=== PATIENT | male | born 2000 | race Caucasian/White ===

== ENCOUNTER 2019-03-19 11:03 | Emergency (ER) | payer OTHER, SELFPAY ==
[2019-03-19 11:07] VITALS: BP 123/99; PULSE 95; RESP 18; TEMP 37; O2SAT 97
--- NOTE | 2019-03-19 11:18 | ED.GENADUL_ITS ---
Discharge Plan Disposition Patient Disposition: HOME Condition: Stable Discharge Details Chief Complaint: DrugWithdr Clinical Impression: Opiate withdrawal, Nausea and vomiting Primary Care Provider: Verenice,Local ED Provider: Michelle Allen Home Meds and New Rx's Prescriptions: Continued sertraline 100 mg Tablet 100 mg PO DAILY RF: 0 buspirone 10 mg Tablet 10 mg PO BID RF: 0 Discharge Instructions Instructions: Acute Nausea and Vomiting (ED), Opioid Withdrawal (ED) Additional Instructions: Take the Compazine as needed and directed for nausea and vomiting. Take the Suboxone sublingual dose tomorrow. Follow-up with your scheduled appointment with the [facility] on Wednesday. Return to the emergency department if you develop any worsening or new concerning symptoms. Discharge Data Discharge Date/Time-TO BE ENTERED AT DEPARTURE: 03/19/19 12:02 Discharge Physician: Michelle Allen Medical Decision Making 18-year-old male with history of opiate addiction last year being treated with Suboxone taper who is complaining of nausea vomiting and feelings of opiate withdrawal after his last dose of Suboxone 5 days ago. Patient states he has taken clonidine in the past and had adverse side effects which made his symptoms worse. His vitals are within normal limits. He appears nontoxic. No acute findings on exam. Abdomen soft and nontender. Discussed with Paresh from pharmacy and we can give patient 1 tab of 2 mg Suboxone today and one for tomorrow until he follows up with the [facility] program on Wednesday. We will also give 2 tabs of Compazine to take for nausea and vomiting. Patient feels that his symptoms are due to his opiate withdrawal and does not want any further work-up. He is advised to follow-up with his appointment at the [facility] on Wednesday and return here with any concerns. 1644 --after discharge, patient called the ED to state that he vomited directly after taking the Suboxone and Compazine here in the ED. He states he waited some time and then took his second dose of Compazine and Suboxone and states his symptoms improved somewhat but now he is complaining of nausea. He is only requesting additional doses of Compazine. Patient was given 3 additional doses of Compazine. Medical Records Medical records reviewed: Yes I reviewed the patient's medical records. HPI General Mode of arrival: ambulatory . Date/Time Provider Initiated Documentation: 03/19/19 11:10 . Limitations to Documentation: no limitations . Information obtained by: patient . HPI Narrative: Patient is a 18-year-old male with history of opiate addiction currently on Suboxone who presents for opiate withdrawal after his Suboxone ran out 5 days ago. Patient states he had used heroin intramuscularly last year and then he went into a rehab program and was started on Suboxone. He states he was on 8 mg sublingual Suboxone for 2 months, then taper down to 4 mg for 2 weeks, then 2 mg for 2 weeks. He states his last dose was 5 days ago. He states he was planning to stop his Suboxone completely, but was unaware that he would not have any withdrawal symptoms. He states for the past 5 days he has had intermittent nausea and vomiting and abdominal pain that comes and goes. He currently denies any abdominal pain. He states he has an appointment with the [facility] on Wednesday for intake and evaluation. He states he did attempt to reach his primary care doctor who prescribed Suboxone in [place] but states he was unavailable over the weekend. Patient states he would possibly like Suboxone to get him through until Wednesday. Related Data Home Medications Medication Instructions Recorded Confirmed buspirone 10 mg PO BID 03/19/19 03/19/19 sertraline 100 mg PO DAILY 03/19/19 03/19/19 Allergies Allergy/AdvReac Type Severity Reaction Status Date / Time No Known Allergies Allergy Unverified 03/19/19 11:15 General Stated Complaint: DrugWithdr MAURICE: 3 Review of Systems Review of Systems ROS Unobtainable: All systems reviewed & are unremarkable except as noted in HPI and below Constitutional Constitutional: Reports as per HPI, Denies chills and Denies fever(s) Eyes Eyes: Denies blurry vision ENT Ears, Nose, Mouth, and Throat: Denies dizziness, Denies sore throat and Denies throat swelling Cardiovascular Cardiovascular: Denies chest pain and Denies dyspnea Respiratory Respiratory: Denies cough and Denies dyspnea Gastrointestinal Gastrointestinal: Denies abdominal pain, Denies diarrhea and Reports vomiting Genitourinary Genitourinary: Denies hematuria and Denies dysuria Musculoskeletal Musculoskeletal: Denies back pain and Denies numbness Integumentary/Breasts Skin/Breast: Denies lesions and Denies rash Neurologic Neurologic: Denies dizziness, Denies focal weakness and Denies numbness Allergic/Immunologic Allergic/Immunologic: Denies throat swelling [facility] Medical History Anxiety (Chronic) Depression (Chronic) Surgical History No significant past surgical history (Acute) Social History Smoking/Tobacco Use Status: Current every day Tobacco Type: e-cigarettes Alcohol Intake: current Alcohol Intake frequency: a few times a month Drug use: Daily Substance use type: former substance user and marijuana Do you feel safe at home: Yes Exam Const General: cooperative, healthy appearing and no acute distress HENMT Head: normal to inspection Ears: hearing grossly normal bilaterally and TM's normal bilaterally General nose exam: external nose normal Face and sinus: normal facial exam Mouth: oral mucosae normal Throat: posterior oropharynx normal Eyes General: appearance normal, both eyes and all related structures Pupils: PERRL EOM: EOM intact bilaterally Neck Neck: normal visual inspection and No submandibular swelling Lymphatic: no lymphadenopathy noted Chest Chest: normal inspection of the chest and no tenderness Resp Effort & Inspection: normal respiratory effort and able to speak in complete sentences Auscultation: clear to auscultation bilaterally Cardio Rate: regular rate Rhythm: regular rhythm GI Inspection: normal to inspection Palpation: soft, not firm, not rigid and nontender Auscultation: normal bowel sounds Skin General skin exam: no rashes or lesions noted Neuro General: alert, awake and oriented x3 Cognition: normal cognition Speech: speech normal Motor: muscle tone normal throughout Sensory Exam: no sensory deficits noted Extrem General: normal to inspection, full ROM, normal capillary refill, no calf tenderness bilaterally and no edema Psych Appearance: grossly normal Mental Status: mental status grossly normal Speech and Movement: speech and movement normal Affect: normal affect Course Vital Signs Vital signs: Vital Signs Temperature 98.6 F 03/19/19 11:07 Pulse 95 H 03/19/19 11:07 Respiratory Rate 18 03/19/19 11:07 Blood Pressure 123/99 H 03/19/19 11:07 Pulse Oximetry 97 03/19/19 11:07 Temperature 98.6 F 03/19/19 11:07 Temperature Source Skin 03/19/19 11:07 Pulse 95 H 03/19/19 11:07 Respiratory Rate 18 03/19/19 11:07 Respiratory Effort Non-Labored 03/19/19 11:11 Respiratory Pattern Normal 03/19/19 11:11 Blood Pressure 123/99 H 03/19/19 11:07 Blood Pressure Position Sitting 03/19/19 11:07 Pulse Oximetry 97 03/19/19 11:07 Oxygen Delivery Method Room Air 03/19/19 11:07 Oxygen Flow Rate 0 03/19/19 11:07 Pain Level 5 03/19/19 11:07
[2019-03-19] MEDS: Prochlorperazine 10 MG TAB 20 MG PO (11:54)
[2019-03-19 11:58] VITALS: BP 123/99; PULSE 95; RESP 18; TEMP 37; O2SAT 97
[2019-03-19] MEDS: Prochlorperazine 10 MG TAB 30 MG PO (17:12)
== END 2019-03-19 12:02 | disposition home or self-care (01) ==
LOC: ER 12:01
PROVIDERS: Emergency Provider Physician Assistant
DX: R11.2 Nausea with vomiting, unspecified (principal); F11.23 Opioid dependence with withdrawal; Z91.14 Patient's other noncompliance with medication regimen
CPT/HCPCS: 99283

== ENCOUNTER 2019-03-23 16:34 | Emergency (ER) | payer OTHER, SELFPAY ==
[2019-03-23] VITALS (8 sets, daily range): BP systolic 123–157; BP diastolic 67–95; PULSE 58–93; RESP 14–18; TEMP 36.4–38.4; O2SAT 95–100
[2019-03-23] MEDS: Normal Saline 1,000 ML 1000 ML IV ×2 (16:45→21:16)
[2019-03-23] MEDS: Ondansetron 4 MG/2 ML VIAL (16:57)
--- NOTE | 2019-03-23 17:05 | W.ED.GENAD ---
Discharge Plan Disposition Patient Disposition: HOME Condition: Improving Discharge Details Chief Complaint: Nausea/Vomit/Diar Clinical Impression: Abdominal pain with vomiting Primary Care Provider: Verenice,Local ED Provider: Mey Victoria Home Meds and New Rx's Prescriptions: No Action sertraline 100 mg Tablet 100 mg PO DAILY RF: 0 buspirone 10 mg Tablet 10 mg PO BID RF: 0 Discharge Instructions Instructions: Abdominal Pain (ED) Additional Instructions: Drink plenty of fluids. Use medications as prescribed if needed. Tylenol every 6-8 hours if needed for pain, Compazine 3 to 4 times daily if needed activities as tolerated. [place] diet advance as tolerated as discussed Follow-up with [facility] as intended. For alarming symptoms, increase in abdominal pain, fever, worsening symptoms or concerns of immediate reevaluation in the emergency room as discussed Discharge Data Discharge Date/Time-TO BE ENTERED AT DEPARTURE: 03/23/19 23:35 Medical Decision Making <LEELEE Cabrera - Last Filed: 03/25/19 20:15> 18-year-old man presents to the emergency room for complaints of abdominal pain for the last 3 hours associated with several episodes of vomiting and dry heaving. Patient was seen in the emergency room 4 days ago for concern of opiate withdrawal as he ran out of his Suboxone. Patient missed his subsequent recovery appointment therefore has continued to be out of his Suboxone. Patient has been using Compazine with relief of nausea and has been feeling well for the last 3 days. Today it a cheeseburger at [facility] after which he began with severe upper right-sided abdominal pain which has persisted since. Patient reports somewhat episodic pain in his abdomen without radiation. Ultrasound of the right upper quadrant obtained to rule out gallbladder disease as well as labs ordered. Zofran provided for nausea. Patient an ultrasound and unable to tolerate the exam. They were able to identify the gallbladder wall but unable to identify the common bile duct before patient refused the remainder of his exam. Patient returned back to the emergency room. Phenergan was provided for persistent nausea. Toradol and Tylenol ordered for comfort. Patient ultimately had CT evaluation of his abdomen mild wall thickening diffusely of the colon as well as mild circumferential bladder wall thickening. Patient has unremarkable urinalysis. Gallbladder had no obvious enlargement or gallbladder wall thickening. No obvious gallstones identified on CAT scan. No ductal dilation of the common bile duct noted on CAT scan. Ultrasound although mildly limited as they were unable to identify the common bile duct given patient's reported pain was also unremarkable for obvious acute findings. Patient continued to be persistently uncomfortable despite 2 doses of morphine in addition to Toradol and IV Tylenol. Patient noted to have leukocytosis as well as mild developing fever and elevated bilirubin. At this point I asked my attending to reevaluate the patient for second opinion given lack of obvious explanatory CT findings in conjunction with fever and lab findings. After my attending ordered additional medications patient seems significantly improved. Reevaluation of the patient he reports 2 out of 10 pain with no persistent nausea is requesting discharge home at this time. Discussed possible inpatient treatment versus discharge home. Patient would strongly prefer discharge home at this time with prescriptions for Tylenol and Compazine. Prior to discharge, my usual and customary return precautions were reviewed with the patient - this included follow-up instructions and reasons to return to the Emergency Department if conditions worsens, does not improve as expected, or other new concerns arise. <Christopher Shaw MD - Last Filed: 03/24/19 00:13> Patient seen and discussed with LEELEE Victoria. Had been seen here over the weekend with nausea, vomiting and some abdominal pain. Subsequently went home and did reasonably well on a bland diet. He has been tapered off Suboxone and there was some question of possible withdrawal over the weekend. He went to [facility] this afternoon and shortly after eating the food there became acutely ill with nausea, vomiting and abdominal pain again. He has been already treated with fluids, Zofran, Phenergan, IV Tylenol, Toradol, couple of doses of morphine. Patient has a low-grade fever. Continues to have nausea, vomiting and abdominal pain that he describes as generalized cramping. On my exam with distraction his abdomen is completely benign. His work-up included laboratory studies which for the most part unremarkable other than elevated white count. Partial right upper quadrant ultrasound revealed gallbladder to look okay, common bile duct not visualized. CT scan essentially unremarkable other than possibly some wall thickening of the colon and bladder. Patient is not having any diarrhea. Patient given IV Ativan and p.o. Levsin after my evaluation. Subsequently felt much better. No further pain or nausea. Tolerated fluids. Vital signs normalized. He was discharged home. Lab Data Lab results reviewed: Yes I reviewed the patient's lab results. HPI <Mey A Victoria, PA - Last Filed: 03/25/19 20:15> General Date/Time Provider Initiated Documentation: 03/23/19 16:42. HPI Narrative: 18-year-old patient presents to the ER for nausea vomiting and abdominal pain. Patient reports upper abdominal pain for the last 3 hours after eating a cheeseburger. Patient reports he was seen here on the for concern of opiate withdrawal as he ran out of his Suboxone and had been recently tapering. Patient received 2 doses of his Suboxone and Compazine pending his follow-up appointment on Wednesday at [facility]. Patient ultimately missed his follow-up appointment on Wednesday as he was not feeling well. Patient reports at this time significantly worse upper abdominal pain without radiation to his back. Patient reports several episodes of vomiting and nausea which he cannot quantify as he reports there is too many episodes to count. Patient denies any associated diarrhea change in bowel movements. No urinary urgency, frequency or dysuria. Denies obvious fevers. Chills present. No significant headache or dizziness. No other concerns or complaints at this time. Pain is reportedly cramping with long-lasting episodes of very brief moments of improvement. Related Data Home Medications Medication Instructions Recorded Confirmed buspirone 10 mg PO BID 03/19/19 03/23/19 sertraline 100 mg PO DAILY 03/19/19 03/23/19 Allergies Allergy/AdvReac Type Severity Reaction Status Date / Time No Known Allergies Allergy Unverified 03/23/19 16:41 General Stated Complaint: Nausea/Vomit/Diar MAURICE: 3 Review of Systems <LEELEE Cabrera - Last Filed: 03/25/19 20:15> Review of Systems ROS Unobtainable: All systems reviewed & are unremarkable except as noted in HPI and below Constitutional Constitutional: Reports chills and Denies fever(s) Gastrointestinal Gastrointestinal: Reports abdominal pain, Denies diarrhea, Reports nausea and Reports vomiting Genitourinary Genitourinary: Reports hematuria, Reports urinary frequency and Reports urinary urgency PFS <LEELEE Cabrera - Last Filed: 03/25/19 20:15> Medical History Anxiety (Chronic) Depression (Chronic) Social History Smoking/Tobacco Use Status: Current every day Tobacco Type: e-cigarettes Alcohol Intake: current Alcohol Intake frequency: a few times a month Drug use: Daily Substance use type: former substance user and marijuana Do you feel safe at home: Yes Exam <LEELEE Cabrera - Last Filed: 03/25/19 20:15> Narrative Exam Narrative: CONST: Healthy appearing patient, in no acute distress. Well hydrated. Alert and alert. CHEST: Normal insepection of the chest. RESP: Normal respiratory effort. Speaking full sentences. No cough. No audible wheezing. No retractions. Breath sounds equal bilaterally, no wheezing, rhonchi or rales. CARDIO: No JVD. No murmurs or rubs MUSCULOSKELETAL: Normal Gait. FROM of all extremities. Abdomen; abdomen is soft, bowel sounds present in all 4 quadrants. Patient with moderate tenderness in the right upper quadrant. Mild epigastric tenderness. No significant lower abdominal pain with palpation. No rebound or guarding. SKIN: Normal. Dry. No rashes. NEURO: Alert and awake. Speech clear. PSYCH: Normal affect. Cooperative. Course <LEELEE Cabrera - Last Filed: 03/25/19 20:15> Vital Signs Vital signs: Vital Signs Temperature 36.8 C 03/23/19 16:37 Pulse 93 H 03/23/19 16:37 Respiratory Rate 16 03/23/19 16:37 Blood Pressure 157/95 H 03/23/19 16:37 Pulse Oximetry 95 03/23/19 16:37 Temperature 36.8 C 03/23/19 16:37 Temperature Source Skin 03/23/19 16:37 Pulse 93 H 03/23/19 16:37 Respiratory Rate 16 03/23/19 16:37 Respiratory Effort Non-Labored 03/23/19 16:37 Blood Pressure 157/95 H 03/23/19 16:37 Blood Pressure Position Sitting 03/23/19 16:37 Pulse Oximetry 95 03/23/19 16:37 Oxygen Delivery Method Room Air 03/23/19 16:37 Oxygen Flow Rate 0 03/23/19 16:37 Pain Level 8 03/23/19 16:57
[2019-03-23 17:18] LABS: Abs Immature Grans 0.02 k/cumm (0.0-0.09); Absolute Basophil Count 0.03 k/cumm (0.0-0.2); Absolute Lymphocyte Count 1.23 k/cumm (1.2-3.4); Basophils % 0.2; HGB 14.6 g/dL (13.5-17.5); Immature Grans % 0.1; Lymphocytes % 8.9; Mean Corp. HGB Concentration 35.6 g/dL (32.0-36.0); Mean Corpuscular Hemoglobin 29.5 pg (27.0-33.0); Mean Corpuscular Volume 82.8 fL (80-95); Mean Platelet Volume 10.9 fL (8.0-11.0); Monocytes % 1.4; Neutrophils % 89.4; Platelet Count 286 x1000/uL (130-400); RBC 4.95 m/cumm (4.50-6.00); RBC Distribution Width 12.3 % (11.8-14.1); White Blood Cell Count 13.84 k/cumm (4.4-10.8)
[2019-03-23 17:19] LABS: Absolute Monocyte Count 0.19 k/cumm (0.11-0.7); Absolute Neutrophil Count 12.37 k/cumm (1.2-6.7)
--- NOTE | 2019-03-23 17:28 | NUR.NOTE ---
Nursing Note: u/s tech reports that pt is vomiting in u/s , md updated and new orders noted, primary rn updated.
[2019-03-23 17:31] LABS: ALT 13 U/L (16-63); AST 9 U/L (15-37); Albumin 4.7 g/dL (3.4-5.0); Alkaline Phosphatase 68 U/L (46-116); BUN 11 mg/dL (7-18); Bilirubin, Total 2.4 mg/dL (0.2-1.0); CREATININE 1.07 mg/dL (0.70-1.30); Calcium 8.8 mg/dL (8.5-10.1); Chloride 105 mmol/L (98-107); Glucose 138 mg/dL (70-100); Lipase 68 U/L (73-393); Potassium 3.3 mmol/L (3.5-5.1); Sodium 144 mmol/L (136-145); Total Protein 7.6 g/dL (6.4-8.2)
--- NOTE | 2019-03-23 17:35 | DI.US_ITS ---
EXAM: US ABDOMEN LIMITED CLINICAL HISTORY: RUQ abd pain, r/o cholecystitis TECHNIQUE: Ultrasound performed using standard protocol. COMPARISON: CT ABDOMEN PELVIS W from 03/23/2019 FINDINGS: The gallbladder has a normal appearance. There is no abnormal gallbladder distention, wall thickeni ng or evidence of stones. The visualized portions of liver shows normal echogenicity. None the eli ent did did are refused completion of the exam in the common duct was not visible. It is not enlarge d on the CT performed earlier the same day. IMPRESSION: Normal gallbladder.
--- NOTE | 2019-03-23 18:08 | DI.VRAD_ITS ---
PROCEDURE INFORMATION: Exam: US Abdomen Limited, Right Upper Quadrant Exam date and time: 03/23/2019 5:37 PM Clinical history: 18 years old, male; Abdominal pain; Localized; Right upper quadrant (ruq) TECHNIQUE: Imaging protocol: Real-time ultrasound of the abdomen with image documentation. Examination was focused on the right upper quadrant. COMPARISON: No relevant prior studies available. FINDINGS: Liver: No masses in the visualized portion. Gallbladder: No gallstones. There is no gallbladder wall thickening. Common bile duct: Unable to evaluate because patient declined further evaluation. Pancreas: Not evaluated. See above. Right kidney: Visualized portion appears unremarkable. IMPRESSION: No gallstone. No gallbladder wall thickening. Suboptimal study because patient declined further evaluation. Dictated and Authenticated by: Fabrizio Foy MD. Ordering:MORENO Mathias MD
[2019-03-23] MEDS: Ketorolac 15 MG/ML VIAL IVP (18:10)
[2019-03-23] MEDS: ACETAMINOPHEN 1,000 MG/100 ML BTL 400 MG IVPB (18:10)
[2019-03-23] MEDS: Omnipaque 350 MG/ML 100 ML BTL IJ (19:36)
--- NOTE | 2019-03-23 19:38 | DI.CT_ITS ---
EXAM: CT ABDOMEN PELVIS W CLINICAL HISTORY: RUQ AND GERNALIZED ABD PAIN TECHNIQUE: Post IV contrast. No oral contrast. COMPARISON: No exams were available for comparison FINDINGS: The lung bases are clear. The liver, spleen, pancreas, kidneys and adrenals are unremarkable. There is no significant stool within the colon which is nondistended. There is a question of mild urinary bladder wall thickening. No adenopathy is seen. There is no evidence of appendicitis. IMPRESSION: No acute abnormality. Question of mild urinary bladder wall thickening.
--- NOTE | 2019-03-23 19:51 | DI.VRAD_ITS ---
PROCEDURE INFORMATION: Exam: CT Abdomen And Pelvis With Contrast Exam date and time: 03/23/2019 7:34 PM Clinical history: 18 years old, male; Abdominal pain; Generalized TECHNIQUE: Imaging protocol: Computed tomography of the abdomen and pelvis with intravenous contrast. Radiation optimization: All CT scans at this facility use at least one of these dose optimization techniques: automated exposure control; mA and/or kV adjustment per patient size (includes targeted exams where dose is matched to clinical indication); or iterative reconstruction. Contrast material: [id number]; Contrast volume: 90 ml; Contrast route: IV 20G LAC; COMPARISON: US ABDOMEN LIMITED 03/23/2019 5:21 PM FINDINGS: Liver: No mass. Gallbladder and bile ducts: No calcified stones. No ductal dilation. Pancreas: No ductal dilation. Spleen: No splenomegaly. Adrenals: No mass. Kidneys and ureters: No hydronephrosis. Stomach and bowel: Apparent mild wall thickening diffusely in the colon. Appendix: No evidence of appendicitis. Intraperitoneal space: No free air. No significant fluid collection. Vasculature: No acute finding. Lymph nodes: No enlarged lymph nodes. Bladder: Apparent mild circumferential bladder wall thickening, may be exaggerated by non-maximal distention. Reproductive: Unremarkable as visualized. Bones/joints: Unremarkable. No acute fracture. Soft tissues: Unremarkable. IMPRESSION: 1. Apparent mild wall thickening diffusely in the colon. This can be exaggerated by nondistention. However, correlate for mild inflammation. 2. Apparent mild circumferential bladder wall thickening, may be exaggerated by non-maximal distention. Correlate to rule out cystitis. Dictated and Authenticated by: Fabrizio Foy MD. Ordering:MORENO Mathias MD
[2019-03-23 19:57] LABS: *AMPHETAMINES SCREEN URINE Negative (Negative); *BARBITURATES SCREEN URINE Negative (Negative); *BENZODIAZEPINES SCREEN URINE Negative (Negative); Cannabinoids THC POSITIVE (Negative); Cocaine Screen,Urine Negative (Negative); METHADONE URINE SCREEN Negative (Negative); OPIATES URINE SCREEN Negative (Negative)
[2019-03-23 20:01] LABS: Tricyclic Antidepressants Negative (Negative)
[2019-03-23 20:23] LABS: Bilirubin Negative (Negative); Blood Negative (Negative); Clarity Clear (Clear); Glucose Negative (Negative); Ketones 80 mg/dL (Negative); Leukocyte Esterase Negative (Negative); Nitrite Negative (Negative); pH 7.5 (5-8)
[2019-03-23 20:39] LABS: Bacteria Negative HPF (Negative); C & S Indicated? No; Casts Negative LPF (Negative); Crystals Many Amorphous HPF (Negative); Epithelial Cells Negative HPF (Negative); Mucus Moderate (Negative); Other Cells Negative (Negative); RBC Negative (0-2); WBC 0-2 HPF (0-5)
[2019-03-23] MEDS: Ondansetron 4 MG/2 ML VIAL IVP (21:14)
[2019-03-23] MEDS: Hyoscyamine 0.125 MG SL/ORAL/CHEW SL (21:45)
[2019-03-23] MEDS: LORazepam 2 MG/ML VIAL 1 MG IVP (21:45)
[2019-03-23] MEDS: Acetaminophen 500 MG TAB 4000 MG PO (23:32)
[2019-03-23] MEDS: Prochlorperazine 10 MG TAB 40 MG PO (23:32)
== END 2019-03-23 23:35 | disposition home or self-care (01) ==
PROVIDERS: Emergency Provider Physician Assistant
DX: R11.2 Nausea with vomiting, unspecified (principal); R10.11 Right upper quadrant pain; F11.23 Opioid dependence with withdrawal; Z91.14 Patient's other noncompliance with medication regimen
CPT/HCPCS: 80053; 80307; 83690; 96361; 96365; 96367; 96375; 96376; 99285; 74177; 76705; 81003; 81015; 85025; 99284; J0131; J1885; J2060; J2405; J3490

== ENCOUNTER 2019-03-28 19:55 | Emergency (ER) | payer OTHER, SELFPAY ==
[2019-03-28 20:00] VITALS: BP 134/100; PULSE 100; RESP 18; TEMP 36.4; O2SAT 98
--- NOTE | 2019-03-28 20:03 | ED.GENADUL_ITS ---
Discharge Plan Disposition Patient Disposition: HOME Condition: Improving Discharge Details Chief Complaint: Nausea/Vomit/Diar Clinical Impression: Nausea and vomiting, Abdominal cramping Primary Care Provider: Verenice,Local ED Provider: Christopher Shaw Meds and New Rx's Prescriptions: New ondansetron 4 mg tablet,disintegrating 4 mg PO Q6H PRN (Reason: nausea and vomiting) Qty: 10 RF: 0 hyoscyamine sulfate 0.125 mg tablet,disintegrating 0.125 mg PO BID-QID PRN (Reason: abdominal cramping) Qty: 10 RF: 0 Continued sertraline 100 mg Tablet 100 mg PO DAILY RF: 0 buspirone 10 mg Tablet 10 mg PO BID RF: 0 Discharge Instructions Additional Instructions: [place] diet for the next 24 hours. Stay hydrated. Medications for nausea/vomiting and abdominal cramping as needed. You need to establish primary care in the area for follow-up. Will have case management reach out to try to facilitate this. Return to ED for fever, increasing pain, persistent vomiting, other problems. Consider taking a 2-week break from marijuana to see if this improves symptoms. Referrals: Care Management [Provider Group] Medical Decision Making <Christopher Shaw MD - Last Filed: 03/28/19 23:22> Patient presenting with recurrent nausea, vomiting and abdominal pain. Last visit did not respond to typical treatment. Eventually responded to 1 dose of Ativan and a dose of sublingual Levsin. Starting to suspect cannabis hyperemesis syndrome. We will give a liter of fluid. Will treat with Zofran, Ativan, Levsin. Will check laboratory studies. Previous ultrasound, CAT scan, laboratory studies are unremarkable other than slightly elevated white count. Will reevaluate. Patient laboratory studies show no significant change from previous. White count still little elevated. Potassium just a little low. Liver function and lipase normal. He has had no further nausea or vomiting here. His abdominal exam is benign. He has tolerated ice chips and azeem kavitha. Patient will be discharged home with prescriptions for Zofran and Levsin. [place] diet for the next 24 hours. Referral to care management to obtain primary care here in the area. Return to ED if recurrent symptoms, fever, other problems. Lab Data Lab results reviewed: Yes I reviewed the patient's lab results. <LEELEE Schumacher - Last Filed: 03/28/19 23:37> My name was added to this chart in error. HPI <Christopher Shaw MD - Last Filed: 03/28/19 23:22> General Mode of arrival: ambulatory . Date/Time Provider Initiated Documentation: 03/28/19 20:03 . Limitations to Documentation: no limitations . Information obtained by: patient, RN notes reviewed and old records reviewed . HPI Narrative: Patient presents to ED with recurrent nausea, vomiting and abdominal pain. Patient has been seen here twice recently for same. I was involved in his care with his last visit. Subsequently after leaving the ED he reports being fine and eating and drinking normally. Woke up this morning feeling fine but since this afternoon has been unable to keep anything down and is unable to stop retching. There is nothing different about this episode than previous episodes. He has not had problems like this in the past. He does continue to smoke marijuana on a daily basis. He denies hematemesis or coffee-ground emesis. He denies diarrhea. Related Data Home Medications Medication Instructions Recorded Confirmed buspirone 10 mg PO BID 03/19/19 03/28/19 sertraline 100 mg PO DAILY 03/19/19 03/28/19 hyoscyamine sulfate 0.125 mg PO BID-QID PRN #10 tab 03/28/19 ondansetron 4 mg PO Q6H PRN #10 tab 03/28/19 Previous Rx's Medication Instructions Recorded hyoscyamine sulfate 0.125 mg PO BID-QID PRN #10 tab 03/28/19 ondansetron 4 mg PO Q6H PRN #10 tab 03/28/19 Allergies Allergy/AdvReac Type Severity Reaction Status Date / Time No Known Allergies Allergy Unverified 03/28/19 20:05 General MAURICE: 3 Review of Systems <Christopher Shaw MD - Last Filed: 03/28/19 23:22> Review of Systems Narrative: As documented in HPI otherwise negative as below. Const: no fever, chills, weakness Resp: no cough, SOB, pleuritic pain CV: no CP, diaphoresis, edema, syncope GI: abdominal pain, nausea, vomiting; no diarrhea Neuro: no headache, numbness, focal weakness, confusion PFSH <Christopher Shaw MD - Last Filed: 03/28/19 23:22> Medical History Anxiety (Chronic) Depression (Chronic) Surgical History No significant past surgical history (Acute) Social History Smoking/Tobacco Use Status: Current every day Tobacco Type: e-cigarettes Alcohol Intake: current Alcohol Intake frequency: a few times a month Drug use: Daily Substance use type: former substance user and marijuana Do you feel safe at home: Yes Do you feel safe in your relationship?: Yes Exam <Christopher Shaw MD - Last Filed: 03/28/19 23:22> Narrative Exam Narrative: Vitals: Afebrile. Mild tachycardia and elevated blood pressure. Normal O2 saturation. Const: WDWN male in NAD holding bucket. HEENT: NC/AT. Normal facial exam. Eyes: Normal conjunctiva and sclera. Neck: Supple. Trachea midline. Lungs: Normal respiratory effort. Lungs are clear. Cor: RRR without murmur/gallop. Good radial pulses. GI: Soft. NT/ND. No guarding or rebound. Neuro: A+O x 3. CN grossly in tact. Good strength and no focal deficit. Ext: No C/C/E. No deformity or tenderness. Skin: Warm and dry without rash.
[2019-03-28] MEDS: Lactated Ringers 1,000 ML 1000 ML IV (20:17)
[2019-03-28] MEDS: Ondansetron 4 MG/2 ML VIAL IVP (20:17)
[2019-03-28] MEDS: LORazepam 2 MG/ML VIAL 1 MG IVP (20:17)
[2019-03-28 20:22] LABS: Abs Immature Grans 0.03 k/cumm (0.0-0.09); Absolute Basophil Count 0.04 k/cumm (0.0-0.2); Absolute Eosinophil Count 0.03 k/cumm (0.0-0.7); Absolute Monocyte Count 0.46 k/cumm (0.11-0.7); Basophils % 0.3; Eosinophils % 0.2; HGB 15.6 g/dL (13.5-17.5); Immature Grans % 0.2; Lymphocytes % 13.8; Mean Corp. HGB Concentration 35.5 g/dL (32.0-36.0); Mean Corpuscular Hemoglobin 29.5 pg (27.0-33.0); Mean Corpuscular Volume 83.2 fL (80-95); Mean Platelet Volume 10.7 fL (8.0-11.0); Monocytes % 3.2; Neutrophils % 82.3; Platelet Count 284 x1000/uL (130-400); RBC 5.29 m/cumm (4.50-6.00); RBC Distribution Width 12.6 % (11.8-14.1); White Blood Cell Count 14.53 k/cumm (4.4-10.8)
[2019-03-28 20:28] LABS: Absolute Lymphocyte Count 2.01 k/cumm (1.2-3.4); Absolute Neutrophil Count 11.96 k/cumm (1.2-6.7)
[2019-03-28 20:31] LABS: ALT 10 U/L (16-63); AST 8 U/L (15-37); Albumin 4.7 g/dL (3.4-5.0); Alkaline Phosphatase 71 U/L (46-116); Anion Gap 16.3 mmol/L (3-11); BUN 8 mg/dL (7-18); Bilirubin, Total 1.2 mg/dL (0.2-1.0); CO2 23.7 mmol/L (21.0-32.0); CREATININE 0.82 mg/dL (0.70-1.30); Calcium 8.8 mg/dL (8.5-10.1); Chloride 105 mmol/L (98-107); Glucose 149 mg/dL (70-100); Lipase 73 U/L (73-393); Potassium 3.4 mmol/L (3.5-5.1); Sodium 145 mmol/L (136-145); Total Protein 7.6 g/dL (6.4-8.2)
[2019-03-28] MEDS: Hyoscyamine 0.125 MG SL/ORAL/CHEW SL (21:07)
--- NOTE | 2019-03-28 21:08 | NUR.NOTE ---
Nursing Note: pt appears to be sleeping on his left side. when awoke pt he reports that he isn't feeling any better. ctm
[2019-03-28 21:36] VITALS: BP 160/87; PULSE 67; RESP 16; O2SAT 100
[2019-03-28 23:20] VITALS: BP 136/88; PULSE 86; RESP 17; TEMP 37.2; O2SAT 98
[2019-03-28] MEDS: Ondansetron O.D.T. 4 MG TABEF, 3 TABS/BTL PO (23:27)
== END 2019-03-28 23:30 | disposition home or self-care (01) ==
PROVIDERS: Emergency Provider Emergency Medicine
DX: R11.2 Nausea with vomiting, unspecified (principal); R10.9 Unspecified abdominal pain
CPT/HCPCS: 36415; 80053; 83690; 96361; 96374; 99284; 85025; J2060; J2405; J3490

== ENCOUNTER 2019-07-17 22:07 | Emergency (ER) | payer SELFPAY ==
[2019-07-17 22:13] VITALS: BP 122/77; PULSE 84; RESP 16; TEMP 36.6; O2SAT 97
--- NOTE | 2019-07-18 02:21 | NUR.NOTE ---
Nursing Note: LATE ENTRY FOR 230 on 07/17/19: Provider made aware pt wanted to leave AMA. I feel better and want to go. Provider aware, has established capacity and pt signs paperwork and leaves ED, walking.
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
== END 2019-07-17 23:02 ==
PROVIDERS: Emergency Provider Physician Assistant
DX: Z53.21 Procedure and treatment not carried out due to patient leaving prior to being seen by health care provider (principal)

== ENCOUNTER 2019-07-19 15:15 | Emergency (ER) | payer OTHER, SELFPAY ==
[2019-07-19 15:18] VITALS: BP 133/73; PULSE 106; RESP 16; TEMP 37.2; O2SAT 98
--- NOTE | 2019-07-19 15:30 | DI.RAD_ITS ---
EXAM: XR ANKLE RT COMPLETE INDICATION: Swelling, contusion. COMPARISON: No exams were available for comparison TECHNIQUE: 2D digital imaging was performed. FINDINGS: There is a bony density seen best on the lateral view at the posterior aspect of the talus. It is loc ated medial to the talus on the AP view. There is a defect in the medial aspect of the talus. This may represent a large avulsed fragment. Findings are of indeterminate age. The ankle mortise is not widened. No additional fractures are seen. IMPRESSION: Question of an avulsion fracture from the medial aspect of the talus.
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
--- NOTE | 2019-07-19 16:45 | DI.CT_ITS ---
EXAM: CT LOWER EXTREMITY RT WO CLINICAL HISTORY: ankle and hindfoot, pain, ID for fracture. TECHNIQUE: The exam was performed without contrast. COMPARISON: XR ANKLE RT COMPLETE from 07/19/2019 FINDINGS: There is a comminuted fracture involving the posterior medial aspect of the talus. Up to 1 centimete r of displacement of the fracture fragments is noted. There is some impaction of the fracture noted. There is a nondisplaced fracture involving the proximal and superior navicular. It involves the kavitha avicular joint. There is an osseous fragment posterior to the lateral malleolus suspicious for a small avulsion fract ure. There is soft tissue swelling of the ankle. There is an ankle joint effusion. IMPRESSION: 1. Comminuted displaced fracture involving the posterior medial talus. 2. Nondisplaced intra-articular fracture of the proximal navicular. 3. Osseous fragment posterior to the lateral malleolus suspicious for a small avulsion fracture.
--- NOTE | 2019-07-19 17:24 | DI.VRAD_ITS ---
PROCEDURE INFORMATION: Exam: CT Right Lower Extremity Without Contrast, Ankle Exam date and time: 07/19/2019 5:00 PM Age: 19 years old Clinical indication: Pain; Ankle; Right TECHNIQUE: Imaging protocol: CT of the Right lower extremity without contrast was performed. Exam focused on the ankle. COMPARISON: CR XR ANKLE RT COMPLETE 07/19/2019 3:52 PM FINDINGS: Bones/joints: Acute comminuted fracture of the posteromedial aspect of the talus. Up to 11 mm of displacement. Up to 6 mm of impaction. Fracture extends into the posterior subtalar joint. 2 mm x 5 mm x 1 mm ossification along the posterior aspect of the lateral malleolus, favored to represent a small avulsed fracture fragment, with 9 mm of posterior displacement. Acute nondisplaced fracture of the navicular, extending into the talonavicular joint. Moderate ankle joint hemarthrosis. No dislocation. Soft tissues: Diffuse soft tissue swelling surrounding the ankle and at the dorsal aspect of the foot. IMPRESSION: 1. Acute comminuted, displaced, and impacted intra-articular fracture of the posteromedial aspect of the talus. 2. Acute nondisplaced fracture of the navicular. 3. Apparent tiny avulsion fracture of the lateral malleolus. Please note that this is a preliminary report. The separate, final report is to follow. Dictated and Authenticated by: Sabrina Ocampo MD. Ordering:MORENO Mathias MD
== END 2019-07-19 18:55 | disposition home or self-care (01) ==
PROVIDERS: Emergency Provider Physician Assistant
DX: S92.131A Displaced fracture of posterior process of right talus, initial encounter for closed fracture (principal); S92.254A Nondisplaced fracture of navicular [scaphoid] of right foot, initial encounter for closed fracture; S82.61XA Displaced fracture of lateral malleolus of right fibula, initial encounter for closed fracture; V43.52XA Car driver injured in collision with other type car in traffic accident, initial encounter
CPT/HCPCS: 28450; 73610; 73700; E0114; L4361

== ENCOUNTER 2019-12-22 02:41 | Emergency (ER) | payer OTHER, SELFPAY ==
[2019-12-22 02:46] VITALS: BP 144/80; PULSE 86; RESP 16; TEMP 36.5; O2SAT 100
--- NOTE | 2019-12-22 02:46 | ED.GENADUL_ITS ---
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 Establish primary care here, will have care management help you with this. Consider contacting [facility] for counseling. Return to ED if problems. Referrals: Care Management [Provider Group] [facility] [Provider Group] Medical Decision Making Patient with history of anxiety who is missed a few days of his BuSpar. Likely contributed to panic attack tonight. Is better but still quite anxious and quite scared. Will give dose of p.o. Ativan here as his girlfriend drove. He will be sure to fill his prescription for his BuSpar today and begin retaking it. He does not have primary care in the area so will refer to care management to help establish same. Should consider following up with a counselor or reaching out to [facility] for same. HPI General Mode of arrival: ambulatory . Date/Time Provider Initiated Documentation: 12/22/19 02:45 . Limitations to Documentation: no limitations . Information obtained by: patient and RN notes reviewed . HPI Narrative: Patient presents to ED with panic attack. Patient has history of anxiety disorder and has had panic attacks in the past. He ran out of his buspirone few days ago. He is not had time to refill it. Tonight he developed panic attack with associated shortness of breath, palpitations, diaphoresis, hyperventilation leading to near syncope. He was unable to calm himself down. Yet his girlfriend bring him here. He is managed to calm down a little bit at this point and feels better, but still is very anxious and scared. Related Data Home Medications Medication Instructions Recorded Confirmed buspirone 20 mg PO DAILY 03/19/19 12/22/19 sertraline 100 mg PO DAILY 03/19/19 12/22/19 Allergies Allergy/AdvReac Type Severity Reaction Status Date / Time No Known Allergies Allergy Unverified 07/19/19 15:21 General MAURICE: 4 Review of Systems Constitutional Constitutional: Denies fever(s) Cardiovascular Cardiovascular: Denies chest pain, Reports rapid heart rate, Reports lightheadedness and Reports dyspnea Respiratory Respiratory: Denies cough and Reports dyspnea Gastrointestinal Gastrointestinal: Denies diarrhea, Reports nausea and Denies vomiting Psychiatric Psychiatric: Reports anxiety and Reports panic attacks [facility] Medical History Anxiety (Chronic) Depression (Chronic) Surgical History No significant past surgical history (Acute) Social History Smoking/Tobacco Use Status: Current every day Tobacco Type: e-cigarettes Alcohol Intake: current Alcohol Intake frequency: a few times a month Drug use: Daily Substance use type: former substance user and marijuana Do you feel safe at home: Yes Do you feel safe in your relationship?: Yes Exam Narrative Exam Narrative: Vitals: Afebrile. Hypertensive otherwise normal vitals and normal room air pulse ox. Const: WDWN male still quite anxious. HEENT: NC/AT. Normal facial exam. Eyes: Normal conjunctiva and sclera. Neck: Supple. Trachea midline. Lungs: Normal respiratory effort. Cor: Good radial pulses. Neuro: A+O x 3. Normal speech, mentation, gait. Cranial nerves II - XII grossly intact. No gross motor or sensory deficit. Ext: No C/C/E. Psych: Anxious. No SI/depression.
[2019-12-22 02:48] VITALS: RESP 16
[2019-12-22] MEDS: LORazepam 1 MG TAB PO (03:05)
--- NOTE | 2020-01-04 15:05 | PDOC.ERCMPRO ---
- If Service Date Differs Date of service: 12/25/19 Time of Service: 15:05 Care Management Progress Note At the request of ED provider, CM coordinates a referral to maurice Meek, of [facility] to assist patient in establishing care with a local PCP.
== END 2019-12-22 03:05 | disposition home or self-care (01) ==
LOC: ER 03:10
PROVIDERS: Emergency Provider Emergency Medicine
DX: R41.0 Disorientation, unspecified (principal); R06.02 Shortness of breath; R00.2 Palpitations; R06.4 Hyperventilation
CPT/HCPCS: 99283